=== PATIENT | male | born 1955 | race Caucasian/White ===

== ENCOUNTER 2025-01-08 07:36 | Outpatient (CLI) | payer MEDICARE, BC ==
[2025-01-07 11:19] VITALS: PULSE 42; RESP 18; O2SAT 98
[2025-01-08] VITALS (7 sets, daily range): BP systolic 167–204; BP diastolic 67–82; PULSE 42–51; RESP 18; O2SAT 95–98
[~2025-01-08] VITALS: Ht 188 cm; Wt 136.4 kg
[~2025-01-08 07:36] MED LIST: aminophylline 500mg/20ml vial IV PRN; regadenoson 0.4mg/5ml syringe IV ONE
[2025-01-08] MEDS: regadenoson 0.4mg/5ml syringe IV ONE (08:09)
== END 2025-01-08 23:59 | disposition home or self-care (01) ==
LOC: NM 07:36
PROVIDERS: ATTEND Internal Medicine Interventional Cardiology
DX: R06.02 Shortness of breath (principal)
CPT/HCPCS: 78452; 93017; A9500; J2785; J0280

== ENCOUNTER 2025-01-21 10:25 | Day surgery (SDC) | payer MEDICARE, BC ==
[2025-01-17 08:35] LABS: BASOPHILS # (AUTO) 0.1 X10'3 (0-0.2); BASOPHILS % (AUTO) 1.2 % (0-1); EOSINOPHILS # (AUTO) 0.2 X10'3 (0-0.9); EOSINOPHILS % (AUTO) 2.9 % (0-6); HEMATOCRIT 46.3 % (42.0-52.0); HEMOGLOBIN 15.5 g/dl (14.0-17.9); LYMPHOCYTES # (AUTO) 1.6 X10'3 (1.1-4.8); LYMPHOCYTES % (AUTO) 29.4 % (21-51); MEAN CORPUSCULAR HEMOGLOBIN 29.7 PG (27.0-31.0); MEAN CORPUSCULAR HGB CONC 33.5 g/dL (33.0-36.5); MEAN CORPUSCULAR VOLUME 88.4 FL (78-98); MEAN PLATELET VOLUME 7.8 FL (7.4-10.4); MONOCYTES # (AUTO) 0.7 X10'3 (0-0.9); MONOCYTES % (AUTO) 12.7 % (2-12); NEUTROPHILS % (AUTO) 53.8 % (42-75); PLATELET COUNT 269 X10'3 (140-440); RED BLOOD COUNT 5.24 X10'6 (4.70-6.10); RED CELL DISTRIBUTION WIDTH 14.1 % (11.5-14.5); WHITE BLOOD COUNT 5.5 X10'3 (4.5-11.0)
[2025-01-17 08:54] LABS: ALBUMIN 4.1 G/DL (3.4-5.0); ANION GAP 9 (8-16); BLOOD UREA NITROGEN 31 MG/DL (7-18); BUN/CREATININE RATIO 27.4 (10.0-20.0); CHLORIDE 103 MMOL/L (99-107); CREATININE 1.13 MG/DL (0.60-1.10); GLUCOSE 106 MG/DL (70-104); POTASSIUM 4.8 MMOL/L (3.5-5.1); PRO BRAIN NATRIURETIC PEPTIDE 302 PG/ML (0-125); SODIUM 136 MMOL/L (135-145); TOTAL CARBON DIOXIDE 23.8 MMOL/L (24-32); eGFR 64 ML/MIN
[2025-01-17 09:07] LABS: APTT 34 SECONDS (22-32); INR 1.1 INR; PROTHROMBIN TIME 11.5 SECONDS (9.0-12.0)
[2025-01-21] VITALS (12 sets, daily range): BP systolic 136–173; BP diastolic 57–93; PULSE 39–58; RESP 16; TEMP 98.2; O2SAT 92–100
[~2025-01-21] VITALS: Ht 188 cm; Wt 163.2 kg
[2025-01-21] MEDS ORDERED: APIX5TAB3 PO (10:40)
[2025-01-21] MEDS ORDERED: AMI200T PO (10:40)
[2025-01-21] MEDS ORDERED: AMLO-382 PO (10:40)
[2025-01-21] MEDS: normal saline 1000ml 1,000 ML IV SCH (13:18)
[2025-01-21] MEDS: MIDAZolam 1mg/ml 10ml vial IV ONE (13:18)
[2025-01-21] MEDS: fentaNYL/PF 50MCG/1 ML 2ML syringe IV ONE (13:18)
== END 2025-01-21 14:25 | disposition home or self-care (01) ==
LOC: SSTAY O 10:25
PROVIDERS: ATTEND Student in an Organized Health Care Education/Training Program
DX: I48.91 Unspecified atrial fibrillation (principal); I48.92 Unspecified atrial flutter; I10 Essential (primary) hypertension; Z88.8 Allergy status to other drugs, medicaments and biological substances; R06.00 Dyspnea, unspecified; Z79.899 Other long term (current) drug therapy; Z98.890 Other specified postprocedural states; Z79.01 Long term (current) use of anticoagulants
CPT/HCPCS: 36415; 80048; 83880; 85025; 85610; 85730; 92960; J2250; J3010; J7030; Z7610